=== PATIENT | male | born 1925 | race Caucasian/White ===

== ENCOUNTER 2016-10-17 22:28 | Emergency (ER) | payer OTHER ==
[2016-10-17 23:32] LABS: MANUAL DIFF NEEDED? NO
[2016-10-17 23:34] LABS: BASO% 0.8 % (0.0-0.8); EOS# 0.14 X1000 (0.0-0.7); EOS% 3.5 % (0.0-10.0); HEMATOCRIT 40.7 % (42.0-52.0); HEMOGLOBIN 13.1 g/dL (14.0-18.0); LYMPH# 0.85 X1000 (1.2-3.4); LYMPH% 21.4 % (20.5-51.1); MCH 29.8 PG (27-31); MCHC 32.2 g/dL (33-37); MCV 92.5 FL (81-99); MONO# 0.53 X1000 (0.11-0.59); MONO% 13.4 % (1.7-9.3); NEUT% 60.9 % (42.2-75.2); PLT 174 X1000 (130-400)
--- NOTE | 2016-10-17 23:36 | PROVIDER DOCUMENTATION ---
HPI-Neurological Disorder - History of Present Illness-Neuro Severity: reports: mild Onset/Duration: reports: this morning Timing: reports: still present Context: reports: none Character of Altered Mental Status: reports: N/A Any recent trauma/injury?: reports: none Character of Deficits: reports: vision problem/glaucoma. denies: new weakness, impaired speech, decreased ability to stand, decreased ability to walk New weakness or altered sensation location:: reports: none Cognitive Baseline: alert, oriented x3 Gait Baseline: walks without assistance Associated Symptoms: reports: dizziness, vision changes. denies: short of breath, headache, fainting, chest pain, fever/chills, loss of consciousness, nausea, vomiting Similar Symptoms Previously?: No Recently seen or treated by another doctor?: No <Nick Rojas - Last Filed: 10/17/16 23:39> <Mo Bear - Last Filed: 10/18/16 00:02> - General Chief Complaint: Stroke-Like Symptoms Stated Complaint: POSS STROKE Time Seen by Provider: 10/17/16 22:50 Allergies/Adverse Reactions: Patient Allergies Allergy/AdvReac Type Severity Reaction Status Date / Time No Known Allergies Allergy Verified 10/17/16 23:17 Home Medications: Home Medication List Medication Instructions Recorded Confirmed Last Taken Type Cholecalciferol (Vitamin D3) 2,000 unit PO DAILY 12/27/14 10/17/16 10/17/16 History [Vitamin D] Ferrous Sulfate 325 mg PO DAILY 12/27/14 10/17/16 10/17/16 History Levothyroxine [Synthroid] 50 microgm PO DAILY 12/27/14 10/17/16 10/17/16 History Donepezil HCl 5 mg PO DAILY 12/31/14 10/17/16 10/17/16 History Fexofenadine HCl 180 mg PO DAILY 12/31/14 10/17/16 10/17/16 History Citalopram [Celexa] 10 mg PO DAILY #30 tablet 01/15/16 10/17/16 10/17/16 Rx Clopidogrel [Plavix] 75 mg PO DAILY #30 tablet 01/15/16 10/17/16 10/17/16 Rx Albuterol 2.5MG/Ipratrop 0.5MG 3 ml INH RTQ6H #120 neb 01/17/16 10/17/16 Unknown Rx [Duoneb (A & A)] Ranitidine [Zantac] 150 mg PO BID #60 tablet 01/17/16 10/17/16 10/17/16 Rx - History of Present Illness-Neuro Nature of Presenting Problem: PT C/O ONSET OF DIZZINESS AND BLURRED,DOUBLE VISION ONSET THIS AM PT HAS HX CVA X 1 YEAR AGO. (Nick Rojas) Review of Systems - Adult - REVIEW OF SYSTEMS - ADULT Constitutional: denies: chills, fever, fatique Eyes: reports: decreased vision, blurred vision, double vision. denies: discharge Ears, Nose, Mouth & Throat: denies: ear pain, mouth/dental pain, throat swelling Cardiovascular: denies: chest pain, irregular heart rate, palpitations Respiratory: denies: cough, shortness of breath, wheezing Gastrointestinal: denies: abdominal pain, nausea, vomiting Genitourinary: denies: dysuria, flank pain, hematuria Musculoskeletal: denies: back pain, muscle aches, neck pain Integumentary: denies: hives, itching, rash Neurological: reports: dizziness/vertigo. denies: headache/migraines, loss of balance, numbness, slurred speech, syncope All Other Systems: Reviewed and Negative <Nick Rojas - Last Filed: 10/17/16 23:39> Past History - Adult - PAST MEDICAL HISTORY-ADULT Review of Records: reports: Nursing Assessment Review, Medications Reviewed Genitourinary: reports: other (urethral stricture) Neurological: reports: dementia Endocrine/Immune: reports: thyroid disorder Other Conditions: reports: denies history - PRIOR SURGERIES/PROCEDURES Surgical/Procedure History: reports: orthopedic (extremity) - PRIOR HOSPITALIZATIONS Prior Hospitalizations: reports: none - IMMUNIZATION STATUS Childhood Immunizations: See Nurse Assessment Flu Vaccine: See Nurse Assessment - FAMILY HISTORY Family History: reviewed, not pertinent - SOCIAL HISTORY Smoking: quit greater than 1 year Substance Use: none/never Alcohol Use Frequency: occasionally Number of drinks per typical drinking period:: 1 drink Living Situation: family <Nick Rojas - Last Filed: 10/17/16 23:39> Physical Exam- Neurological - Physical Exam-Neuro General Appearance: appears well, alert, no apparent distress Eye Exam: left eye: vision changes, bilateral eye: PERRL, EOMI HENMT: normocephalic/atraumatic, moist mucous membranes, normal ENT inspection, TMs normal, pharynx normal Head Injury: no evidence of injury Neck: non-tender, full range of motion, supple, normal inspection Respiratory: chest non-tender, lungs clear, normal breath sounds, no pleuratic chest pain, no respiratory distress, no accessory muscle use Cardiovascular: normal peripheral pulses, regular rate, rhythm, no edema, no gallop, no JVD, no murmur Abdominal Exam: normal bowel sounds, non tender, soft, no organomegaly, no pulsatile mass Extremity: normal range of motion, non-tender, normal inspection, 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 Exam: normal hearing, normal speech, abnormal eye position, abnormal pupil position Coordination/Gait: ABN nose to finger (L) Motor/Sensory: no motor deficit, no sensory deficit, no pronator drift, negative Babinski's sign Integumentary: normal color, normal turgor, warm/dry Psych/Mental Status: normal mood/affect, normal thought content, normal thought process, oriented x 3 - Glascow Coma Scale Best Eye Response: (4) open spontaneously Best Verbal Response: (5) oriented Best Motor Response: (6) obeys commands Total Glascow Score: 15 <Nick Rojas - Last Filed: 10/17/16 23:39> Progress - EKG 1 Time of EKG reading by physician:: 23:24 EKG Read and Signed by:: Mo Bear Rate: 56 Rhythm: SINUS BRADYCARDIA Barton: left WI Interval: prolonged ST Wave: normal - CT/MRI 1 CT Study: Head CT Results: ADVANCED NONSPECIFIC DEEP WHITE MATTER DISEASE. <Nick Rojas - Last Filed: 10/17/16 23:39> Departure <Nick Rojas - Last Filed: 10/17/16 23:39> - Departure Time of Disposition Order: 00:01 Certified Medical Emergency: Emergent <Mo Bear - Last Filed: 10/18/16 00:02> - Departure DIAGNOSIS: Internuclear ophthalmoplegia of left eye Disposition: HOME 01 Condition: Fair Additional Instructions: ED Follow Up Instructions: You have been treated by a care provider in the Emergency Department. These instructions are being provided to you so you can have an understanding of how to care for yourself upon discharge. Upon discharge from the Emergency Department, you are responsible for making arrangements for follow-up care by a physician of your choice. Take all prescribed medications as directed. Return to the Emergency Department immediately for any new or worsening symptoms. You may call the Physician Referral phone number at [phone] to obtain a list of Physicians who are taking new patients. Physician Attestation
[2016-10-17 23:50] LABS: ALBUMIN 3.6 g/dL (3.5-5.0); CALCIUM 8.4 mg/dL (8.8-10.2); TOTAL BILIRUBIN 0.31 mg/dL (0.20-1.00); TOTAL PROTEIN 5.9 g/dL (6.3-8.3)
[2016-10-18 00:23] VITALS: BP 185/70
--- NOTE | 2016-10-18 05:49 | EKG Report ---
Test Performed on : 10/17/2016 11:24:43 PM Test Reason : STROKE Blood Pressure : / mmHG Vent. Rate : 056 BPM Atrial Rate : 056 BPM P-R Int : 232 ms QRS Dur : 112 ms QT Int : 474 ms P-R-T Axes : 075 -30 096 degrees QTc Int : 457 ms Sinus bradycardia. with 1st degree AV block. Left axis deviation Incomplete right bundle branch block Voltage criteria for left ventricular hypertrophy Cannot rule out Septal infarct (cited on or before 10-JAN-2016) T wave abnormality, consider lateral ischemia Abnormal ECG When compared with ECG of 10-JAN-2016 10:26, No significant change was found Unconfirmed Result
--- NOTE | 2016-10-18 07:38 | Diag Imaging Result Document ---
PROCEDURE NAME: HEAD W/O CONTRAST - 10/17/[address]: A CT dose reduction protocol was used. COMPARISON: 01/10/2016. FINDINGS: There is stable, extensive cerebral white matter hypodensity compatible with chronic microvascular disease. There are several stable bilateral lacunar infarcts that are old. No new abnormalities. No intracranial mass or hemorrhage. The skull is intact. The sinuses are clear. IMPRESSION: Stable chronic ischemic changes of the brain. No acute process. [facility]
== END 2016-10-18 00:22 | disposition home or self-care (01) ==
LOC: ED 22:28
DX: H51.22 Internuclear ophthalmoplegia, left eye (principal); R42 Dizziness and giddiness; H53.8 Other visual disturbances; H53.2 Diplopia; E07.9 Disorder of thyroid, unspecified; F03.90 Unspecified dementia, unspecified severity, without behavioral disturbance, psychotic disturbance, mood disturbance, and anxiety; Z79.02 Long term (current) use of antithrombotics/antiplatelets; Z79.899 Other long term (current) drug therapy; Z86.73 Personal history of transient ischemic attack (TIA), and cerebral infarction without residual deficits; Z87.891 Personal history of nicotine dependence
CPT/HCPCS: 70450; 80053; 82948; 85025; 93005